=== PATIENT | female | born 1995 | race Caucasian/White ===

== ENCOUNTER → 2017-02-22 | Outpatient (CLI) | payer BC | LOC: MW.CHOBGYN 09:10 | PROVIDERS: ATTEND Obstetrics & Gynecology | DX: Z34.90 Encounter for supervision of normal pregnancy, unspecified, unspecified trimester (principal) | CPT/HCPCS: 80305; 81003; 81025; 87480; 87491; 87510; 87591; 87660; G0145 ==

== ENCOUNTER → 2017-03-22 | Outpatient (CLI) | payer BC | LOC: MW.CHOBGYN 08:31 | PROVIDERS: ATTEND Obstetrics & Gynecology | DX: O98.319 Other infections with a predominantly sexual mode of transmission complicating pregnancy, unspecified trimester (principal); A74.9 Chlamydial infection, unspecified | CPT/HCPCS: 36415; 85027; 86592; 86762; 86803; 86850; 86900; 86901; 87086; 87340; 87389; 87491; 87591 ==

== ENCOUNTER → 2017-04-19 | Outpatient (CLI) | payer BC ==
--- NOTE | 2017-04-19 14:41 | US ---
Examination: Greater than 14 weeks transabdominal ultrasound with color Doppler and M-mode evaluatio n. HISTORY: FINDINGS: LMP is 11/29/2016 EVALUATION: Fundal placenta with a breech lie and grade 1. Visually amniotic fluid is within n ormal limits. Three-vessel cord is seen. Ventricles are within normal limits. Nuchal fold thickness is 3 mm. Four chamber heart is noted. Heart rate is 150 beats per minute. BIOMETRY AND GESTATIONAL AGE: Biparietal diameter 4.7 cm. The abdominal circumference measures 14.9 cm. The femoral length is 3.3 cm with head circumference of 17.5 cm. Gestational age is 20 weeks and 1 days. The expected date of delivery is approximately 09/05/2017. Fetus weight is 337 grams. Overall the fetus is within the 47th percentile. Other detail anatomy summarized into PACs sheet after the images. The renal pelvises are borderline at 4 mm bilaterally. Otherwise No anatomical anomalies. IMPRESSION: 1. Single active IU with breech fetus. Fundal placenta with grade 1, no placenta previa. 2. Amniotic fluid appears within normal limits. 3. The renal pelvis is are borderline at 4 mm bilaterally. Follow-up may be beneficial.
== END ==
LOC: MW.US 09:33
PROVIDERS: ATTEND Advanced Practice Midwife
DX: Z34.92 Encounter for supervision of normal pregnancy, unspecified, second trimester (principal); Z36 Encounter for antenatal screening of mother; Z3A.20 20 weeks gestation of pregnancy
CPT/HCPCS: 76805; 76805-26